=== PATIENT | female | born 1945 | race Caucasian/White ===

== ENCOUNTER 2021-11-15 07:16 | Outpatient (CLI) | payer MEDICARE, SELFPAY ==
--- NOTE | ~2021-11-15 | MR_ITS ---
EXAMINATION: MR lumbar spine wo con DATE: 11/15/2021 10:04 INDICATION: Lumbar spinal stenosis. TECHNIQUE: Magnetic resonance imaging (MRI) of the lumbar spine was performed without intravenous con trast. Sequences included sagittal T2-weighted FSE, sagittal T2-weighted FS FSE, sagittal T1-weighted FSE, and axial T2-weighted FSE. COMPARISON: None FINDINGS: There is 22 degrees levoscoliosis of thoracic spine. There is 3 mm retrolisthesis of L1 on L2. Vertebral body heights are normal. There is severely decreased disc height from T12-L1 through L5 -S1 with endplate remodeling. The distal spinal cord signal intensity is normal. The conus medullaris is at L2. The following disc levels are specifically discussed: L1-L2: The disc is bulging and has an annular fissure. There is severe right and moderate left facet joint osteoarthritis. There is moderate right and mild left neural foraminal stenosis. There is mild central canal stenosis. L2-L3: The disc is bulging and has an annular fissure. There is moderate right and mild left facet john int osteoarthritis. There is mild bilateral neural foraminal stenosis. There is mild central canal st enosis. L3-L4: The disc is bulging and has an annular fissure. There is mild bilateral facet joint osteoarthr itis. There is mild bilateral neural foraminal stenosis. There is mild central canal stenosis. L4-L5: The disc is bulging and has an annular fissure. There is severe bilateral facet joint osteoart hritis. There is mild right and moderate left neural foraminal stenosis. There is mild central canal stenosis. L5-S1: The disc is bulging and has an annular fissure. There is moderate and severe left facet joint osteoarthritis. There is mild right and moderate left neural foraminal stenosis. There is mild centra l canal stenosis. IMPRESSION: 1. Severe lumbar spondylosis. 2. Lumbar levoscoliosis. Reviewed, dictated and finalized at location A. MA THERAPIST
== END 2021-11-15 07:17 | disposition home or self-care (01) ==
PROVIDERS: PCP Family Medicine; Visit Provider Orthopaedic Surgery
DX: M48.061 Spinal stenosis, lumbar region without neurogenic claudication (principal)
CPT/HCPCS: 72148

== ENCOUNTER 2021-11-17 08:15 | Outpatient (RCR) | payer MEDICARE, SELFPAY ==
--- NOTE | 2021-11-17 07:41 | PTOPEVAL ---
Thank you for referring Dionne Herrera to [facility].? The patient is scheduled to be seen for therapy? __2__x/week for 8 visits. Please review, sign, date and return this plan of care BIMAL. I agree with and certify that the following plan of care is medically necessary. Referring Physician Date Admitting Provider: Attending Provider: Hilario Ayon MD Referring Provider: *PT Outpatient Evaluation Start: 11/17/21 07:15 Freq: Status: Active Protocol: Document 11/17/21 07:14 YVETTE (Rec: 11/17/21 07:41 [email or web address] [email or web address]) Therapy Assessment Status Assessment Status Assessment Status Evaluation Evaluation Information Problem Diagnosis low back pain Onset 10/18/20 Subjective Information Pt. reports she developed pain Query Text:As Reported By Patient/ into the left hip recently. Family She states that pain developed randomly. She describes pain mostly with trying to lay flat or standing too long. She reports carlos eduardo she cannot lay flat and needs to lay in a recliner. She reports that pain is worst in the morning. She states that she can only stand for about 45 minutes before having to sit. 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 She reports she continues to complete all IADL's and ADL's despite her pain. Pain Assessment Timing of Pain Assessment Timing of Pain Assessment Pre-Treatment Pain Scale Pain Scale Used Numeric (1 - 10) Self Report Pain Assessment Left Buttock(s) Reported Pain Level 5 Pain Description Aching Pain Aggravating Factors Exercise/Activity,Lifting, Prolonged Position,Weight Bearing/Standing Pain Score Pain Score 5: Self Report Interventions Used Interventions Used By Clinicians Electrical Stimulation, Exercise,Heat Cervical and Lumbar ROM Lumbar ROM Lumbar Flexion Active [place] Query Text:Hands to: Lumbar Extension (0-40) 5 Query Text:Active in Degrees Lumbar Lateral Flexion Right (0-40) 20 Query Text:Active in Degree
--- NOTE | 2021-12-08 08:51 | PTOPEVAL ---
Thank you for referring Dionne Herrera to [facility].? The patient is scheduled to be seen for therapy? ____x/week for ___ weeks. Please review, sign, date and return this plan of care BIMAL. I agree with and certify that the following plan of care is medically necessary. Referring Physician Date Admitting Provider: Attending Provider: Hilario Ayon MD Referring Provider: *PT Outpatient Evaluation Start: 11/17/21 07:15 Freq: Status: Active Protocol: Document 12/08/21 08:05 ACR (Rec: 12/08/21 08:51 ACR [email or web address]) Therapy Assessment Status Assessment Status Assessment Status Progress Evaluation Information Problem Diagnosis low back pain Onset 10/18/20 Subjective Information Patient states that she thinks Query Text:As Reported By Patient/ that she is doing pretty good Family since beginning therapy. She states that she did have an episode the other night where she was trying to get out of her recliner she could not and it scared her. She was able to clean her house yesterday and stretched quite a bit and felt good. Pain Assessment Timing of Pain Assessment Timing of Pain Assessment Pre-Treatment Pain Scale Pain Scale Used Numeric (1 - 10) Self Report Pain Assessment Left Buttock(s) Reported Pain Level 4 Greatest Pain Intensity 7 Pain Score Pain Score 4: Self Report Interventions Used Interventions Used By Clinicians Activity or ADL's,Electrical Stimulation,Exercise,Heat Cervical and Lumbar ROM Lumbar ROM Lumbar Flexion Active Ankle Query Text:Hands to: Lumbar Extension (0-40) 5 Query Text:Active in Degrees Lateral Rotation Right (0-45) 20 Query Text:Active in Degrees Lateral Rotation Left (0-45) 20 Query Text:Active in Degrees Lower Extremity Muscle Strength Testing General Lower Extremity Strength Gross Lower Extremity Strength B hip flexion: 4+/5 R hip abduction: 3+/5 L hip abduction: 4/5 Muscle Length Testing Muscle Length Testing Piriformis w/Hip Neutral (R) Moderate Tightness,(L) Moderate Tightness Left Hamstring Length 25 Query Text:(90 - 90 Position) Right Hamstring Length 25 Query Text:(90 - 90 Position) General Exercise General Exercises Exercise Description -passive HS stretch x 2 Query Text:Record Sets, Reps, minutes bilateral Resistance, a
--- NOTE | 2021-12-19 12:54 | PTOPEVAL ---
Thank you for referring Dionne Herrera to [facility].? The patient is scheduled to be seen for therapy? ____x/week for ___ weeks. Please review, sign, date and return this plan of care BIMAL. I agree with and certify that the following plan of care is medically necessary. Referring Physician Date Admitting Provider: Attending Provider: Hilario Ayon MD Referring Provider: *PT Outpatient Evaluation Start: 11/17/21 07:15 Freq: Status: Active Protocol: Document 12/19/21 09:41 ACR (Rec: 12/19/21 12:54 ACR [email or web address]) Therapy Assessment Status Assessment Status Assessment Status Progress Evaluation Information Problem Diagnosis low back pain Onset 10/18/20 Subjective Information Patient states that since Query Text:As Reported By Patient/ beginning therapy she is able Family to bend forward with better ease and walk with minimal pain. She is worried about when she gets off of the prednisone if the pain is going to be bad. The patient also is worried about her balance. The patient would like to continue because it is helping her. Pain Assessment Timing of Pain Assessment Timing of Pain Assessment Assessment Pain Scale Pain Scale Used Numeric (1 - 10) Self Report Pain Assessment Left Buttock(s) Reported Pain Level 2 Greatest Pain Intensity 4 Pain Score Pain Score 2: Self Report Interventions Used Interventions Used By Clinicians Activity or ADL's,Exercise Cervical and Lumbar ROM Lumbar ROM Lumbar Flexion Active Ankle Query Text:Hands to: Lumbar Extension (0-40) 5 Query Text:Active in Degrees Lateral Rotation Right (0-45) 20 Query Text:Active in Degrees Lateral Rotation Left (0-45) 20 Query Text:Active in Degrees Lower Extremity Muscle Strength Testing General Lower Extremity Strength Gross Lower Extremity Strength B hip flexion: 4+/5 R hip abduction: 3+/5 L hip abduction: 4/5 Balance Assessment Tinetti Balance Assessment Sitting Balance Steady, safe Ability to Arise Able, uses arms to help Attempts to Arise Arises on 1st attempt Immediate Standing Balance Steady w/o support Standing Balance Steady, wide stance Nudged Response Staggers, catches self Standing with Eyes Closed Unsteady Step Pattern Turning 360 Degrees Continuous steps Stability Turning 360 Degr
--- NOTE | 2022-03-05 17:35 | PCPTNOTE ---
Mrs. Herrera attended a total of 14 treatment sessions. She has failed to return to the clinic and will be discharged from our care at this time. Refer to the last daily note for pt. discharge status.
== END 2022-01-15 23:59 | disposition home or self-care (01) ==
LOC: CHSPT 08:15
PROVIDERS: Visit Provider Orthopaedic Surgery
DX: M54.50 Low back pain, unspecified (principal)
CPT/HCPCS: 97014; 97016; 97110; 97112; 97140; 97161; G0283

== ENCOUNTER 2023-06-22 19:37 | Emergency (ER) | payer OTHER, SELFPAY ==
--- NOTE | ~2023-06-22 | CT_ITS ---
EXAMINATION: CT brain wo con DATE: 06/22/2023 20:23 INDICATION: FALL/HIT LEFT SIDE OF FACE . TECHNIQUE: Computed tomography (CT) of the head was performed without intravenous contrast. The mA wa s adjusted according to patient size. Iterative reconstruction technique was employed. The dose-lengt h product was 681.00 mGy-cm. COMPARISON: None. FINDINGS: No acute intracranial hemorrhage or extra-axial fluid collection. No hydrocephalus, mass, or herniation. No acute ischemic infarct. Unremarkable dural venous sinus attenuation. No acute osseous abnormality. The aerated spaces are clear. Mild atrophy and chronic white matter change. Atherosclerotic intracranial calcification. Bilateral l ens replacements. Old left basal ganglia lacunar infarct. Partially empty sella. IMPRESSION: No acute intracranial process. Reviewed, dictated and finalized at location K.
--- NOTE | ~2023-06-22 | CT_ITS ---
EXAMINATION: CT facial & cervical spine wo DATE: 06/22/2023 20:24 INDICATION: fall/HIT LEFT SIDE OF FACE/DENIES CERVICAL SYMPTOMS TECHNIQUE: Computed tomography (CT) of the maxillofacial region and cervical spine was performed with out intravenous contrast. Automated exposure control and iterative reconstruction technique were empl oyed. The dose-length product was 505.65 mGy-cm. COMPARISON: None FINDINGS: CERVICAL: Vertebral Body Alignment: Intact. Craniocervical and atlantoaxial alignment: Moderate degenerative change. Alignment intact. Osseous structures/fracture: No evidence of a lytic or blastic process in the visualized spine. No e vidence of acute fracture. Cervical soft tissues: The paraspinal soft tissues planes are maintained. Biapical pleural scarring a nd pleural calcification. Calcified pretracheal lymph node. Degenerative changes: Multilevel degenerative disc disease and facet arthropathy. No severe central c anal stenosis. Severe left neural foraminal narrowing at C4-5. FACE: Soft Tissues: Minimal left frontal soft tissue contusion. Facial bones: No acute fracture. No lytic or blastic process. Likely old surgical defect at the entr ance of the left lacrimal duct. Eyes: The globes are intact. The soft tissue planes of the orbits are maintained. Bilateral lens re placements. Paranasal Sinuses: The visualized aerated spaces are clear. Foreign Bodies: No radiopaque foreign bodies. Other Findings: Unerupted teeth in the left maxillary arch. IMPRESSION: No acute fracture or traumatic malalignment in the cervical spine. No acute facial bone fracture. Reviewed, dictated and finalized at location K. IMPRESSION: No acute fracture or traumatic malalignment in the cervical spine. No acute fac ial bone fracture.
[2023-06-22 19:37] VITALS: BP 148/82; PULSE 80; RESP 20; TEMP 37.2; O2SAT 98
[2023-06-22] MEDS: ACETAMINOPHEN 500 MG TABLET 1000 MG PO (20:45)
--- NOTE | 2023-06-22 20:49 | ED.FALL ---
HPI - Fall General Chief Complaint: Head Injury Stated Complaint: fell, L side of face Time Seen by Provider: 06/22/23 19:51 Source: patient and family Mode of arrival: ambulatory Limitations: no limitations History of Present Illness HPI Narrative: patient is a 78-year-old female who was clock Ng out at work and fell after tripping over her feet and landed on her left face. complaint: fall Onset (ago): minute(s) Fall from: standing Fall witnessed: yes, by family Place fall occurred: work Loss of consciousness: none Prolonged down time: no Symptoms prior to fall: none Context: tripped/slipped Location of injury: face Severity: mild Severity scale (1-10): 2 Quality: aching Associated symptoms (after fall): headache Related Data Home Medications Medication Instructions Recorded Confirmed hydrochlorothiazide 12.5 mg tablet 12.5 mg PO DAILY 06/22/23 06/22/23 levothyroxine 88 mcg tablet 88 mcg PO DAILY 06/22/23 06/22/23 metoprolol succinate 100 mg 100 mg PO DAILY 06/22/23 06/22/23 tablet,extended release 24 hr Allergies Allergy/AdvReac Type Severity Reaction Status Date / Time Contrast Media AdvReac Severe NAUSEA/VOMI Uncoded 09/28/18 13:47 TING Review of Systems Review of Systems: All systems reviewed & are unremarkable except as noted in HPI and below Constitutional: Constitutional: Reports no additional constitutional complaints Eyes: Eyes: Reports no additional eye complaints ENT: Reports system reviewed and no additional complaints, except as documented Cardiovascular: Cardiovascular: Reports no additional cardiovascular complaints Respiratory: Respiratory: Reports no additional respiratory complaints Gastrointestinal: Gastrointestinal: Reports no additional gastrointestinal complaints Genitourinary: Genitourinary: Reports no additional female genitourinary complaints Musculoskeletal: Musculoskeletal: Reports no additional musculoskeletal complaints Integumentary/Breasts: Skin/Breast: Reports system reviewed and no additional complaints, except as docu Neurologic: Reports system reviewed and no additional complaints, except as documented Psychiatric: Psychiatric: Reports no additional psychiatric complaints Endocrine: Endocrine: Reports no additional endocrine complaints Hematologic/Lymphatic: Hematologic/Lymphatic: Reports no additional hematologic/lymphatic complaints Allergic/Immunologic: Allergic/Immunologic: Reports no additional allergic/immunologic complaints Exam Const: General: healthy appearing Nutritional Appearance: well nourished Orientation/consciousness: patient oriented x3 HENMT: Head: normal to inspection Ears: external ears normal Face/Nose/Sinus: Normal external nose present Face and sinus: abnormal facial exam ( Left lateral eyebrow moderate hematoma formation and bruising) Mouth: Yes Normal oral and palatal mucosa present Teeth and gingiva: dentition normal Eyes: Conjunctivae: conjunctivae normal Pupils: Equal, round and reactive pupils present EOM: EOMs intact bilaterally Direct Ophthalmoscopy: no photophobia Neck: Neck: normal visual inspection Chest: Chest palpation & inspection: normal inspection of the chest Resp: Effort & Inspection: normal respiratory effort Auscultation: clear to auscultation bilaterally Cardio: Rate: regular rate Rhythm: regular rhythm Heart sounds: no murmurs GI: Inspection: non-distended GI Palp: Yes Soft to palpation, No Tenderness to palpation present (GI), No Guarding due to palpation present (GI) and No Rigid due to palpation Auscultation: normal bowel sounds : General: Yes bladder normal to palpation Back/Spine/Pelvis: Back: no CVA tenderness Skin: General skin exam: normal color Rashes: no rashes Wounds: wounds noted Other: see above Neuro: General: patient oriented x3, moves all extremities, no meningeal signs, no focal motor deficits and CN's II-XI intact bilaterally Cranial nerves: Yes Nys
[2023-06-22 21:16] VITALS: BP 138/89; PULSE 66; RESP 20; TEMP 36.6; O2SAT 98
== END 2023-06-22 21:18 | disposition home or self-care (01) ==
PROVIDERS: Emergency Provider Emergency Medicine; PCP Family Medicine
DX: S00.83XA Contusion of other part of head, initial encounter (principal); Z79.899 Other long term (current) drug therapy; W01.0XXA Fall on same level from slipping, tripping and stumbling without subsequent striking against object, initial encounter; Y99.0 Civilian activity done for income or pay
CPT/HCPCS: 70450; 70486; 72125; 99284

== ENCOUNTER 2025-01-24 15:57 | Emergency (ER) | payer MEDICARE, SELFPAY ==
--- NOTE | 2025-01-24 16:28 | PC.NURSE ---
pt arrived to this er stating her pmd sent her for an uls. pt asked if we do uls. informed we will see pt, evaluate and get an uls if needed. pt asked if that would be done at [facility]. informed that that service is available at [facility] if needed. pt called pmd from [facility], states she does not want to go to [facility]. pmd advised pt to go to [facility]. pt states she is going to [facility] for evaluation. pt sx for stating she does not want er services at [facility]. this chief underwriter contacted dr latanya hatfield's office to confirm his conversation with pt. spoke with yulia obrien who confirmed pt needs to be seen this evening and [facility] was advised.
--- OUTSIDE RECORDS SUMMARY | 2025-01-24 17:07 | XMS_ITS | Encounter Summary ---
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
--- OUTSIDE RECORDS SUMMARY | 2025-01-24 17:07 | XMS_ITS | Clinical Summary ---
Author Organization [facility] Address [address] [place] [id number] Care Team Providers Care Dish Up Person Name Role Phone Obie Hyatt MD Primary Care Provider Allergies Active Allergy Reactions Criticality Noted Date Comments Iodinated Contrast Media Nausea and Vomiting Medications DICLOFENAC EC 50 MG tablet TAKE 1 TABLET BY MOUTH TWICE A DAY 180 tablet 2 06/11/2019 Active Social History Tobacco Use Types Packs/Day Years Used Date Smoking Tobacco: Never Assessed PHQ-2 Answer Date Recorded PHQ-2 Score - If the patient scores above 3, please move on to questions 3-9 0 05/06/2022 Comments Unknown Sex and Gender Information Value Date Recorded Sex Assigned at Not on file 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 Gender Identity Not on file Sexual Orientation Not on file Last Filed Vital Signs Vital Sign Reading Time Taken Comments Blood Pressure 136/87 09/15/2016 4:23 PM TEXTBOOK ASSOCIATE Pulse 71 09/15/2016 4:23 PM TEXTBOOK ASSOCIATE Temperature - - Respiratory Rate - - Oxygen Saturation - - Inhaled Oxygen Concentration - - Weight 86.2 kg (190 lb) 09/15/2016 4:23 PM TEXTBOOK ASSOCIATE Height 167.6 cm (5' 6 ) 09/15/2016 4:23 PM TEXTBOOK ASSOCIATE Body Mass Index 30.67 09/15/2016 4:23 PM TEXTBOOK ASSOCIATE Plan of Treatment Health Maintenance Due Date Last Done Comments DTaP, Tdap and Td Vaccines (1 - Tdap) 1963 Zoster Vaccines (1 of 2) 1994 Annual Medicare Wellness Visit 2009 Dexa Scan (General) 2009 Pneumococcal Vaccine: 65+ Years (2 of 2 - PPSV23 or PCV20) 03/05/2017 03/05/2016 RSV Immunization or 60+ Years (1 - 1-dose 75+ series) 2019 COVID-19 Vaccine ( season) 2024 10/18/2021, 09/05/2021, 11/04/2020, Additional history exists Meningococcal B Vaccine Aged Out No l onger eligible based on patient's age to complete this topic Meningococcal Vaccine Aged Out No kristin angel eligible based on patient's age to complete this topic RSV Immunizations Under 20 Months Aged Out No longer eligible based on patient's age to complete this topic Insurance MED [facility] [place] [address] Care Teams Dish Up Person Relationship Specialty Start Date End Date Obie Hyatt MD [address] [address] PCP - General FAMILY PRACTICE 10/26/19
== END 2025-01-24 16:35 | disposition left against medical advice (07) ==
LOC: CHSED 16:15
PROVIDERS: Emergency Provider Internal Medicine Critical Care Medicine; PCP Family Medicine
DX: S00.83XA Contusion of other part of head, initial encounter (principal); W01.0XXA Fall on same level from slipping, tripping and stumbling without subsequent striking against object, initial encounter; Y99.0 Civilian activity done for income or pay
CPT/HCPCS: 99199